=== PATIENT | female | born 1985 | race Caucasian/White ===

== ENCOUNTER 2024-05-20 08:00 | Day surgery (SDC) | payer BC ==
[~2024-05-20 08:00] MED LIST: propofoL 500 MG/50 ML 50 ML ONE
[2024-05-20] MEDS: Lactated Ringers 1,000 ML IV SCH (08:25)
== END 2024-05-20 10:27 | disposition home or self-care (01) ==
LOC: MW.SDS 08:00
PROVIDERS: ATTEND Surgery
DX: D12.3 Benign neoplasm of transverse colon (principal); Z80.0 Family history of malignant neoplasm of digestive organs; F32.A Depression, unspecified; F41.9 Anxiety disorder, unspecified; Z79.899 Other long term (current) drug therapy
CPT/HCPCS: 45380; 45385; 81025; J2704; J7120; 00811